=== PATIENT | female | born 1955 | race Caucasian/White ===

== ENCOUNTER 2022-10-08 10:16 | Day surgery (SDC) | payer MEDICARE, BC ==
[~2022-10-08 10:16] MED LIST: Propofol 200 MG/20 ML SDV ONE; Sodium Chloride 0.9% 10 ML Syringe FLUSH PRN
[2022-10-08] MEDS: Lactated Ringers 1,000 ML IV SCH (10:47)
[2022-10-08] MEDS ORDERED: Propofol 200 MG/20 ML SDV ONE ×2 (11:14→12:00)
== END 2022-10-08 13:16 | disposition home or self-care (01) ==
LOC: LL.SDS 10:16
PROVIDERS: ATTEND Surgery
DX: K52.9 Noninfective gastroenteritis and colitis, unspecified (principal); K29.50 Unspecified chronic gastritis without bleeding; K21.00 Gastro-esophageal reflux disease with esophagitis, without bleeding; G35 Multiple sclerosis; R70.0 Elevated erythrocyte sedimentation rate; Z79.899 Other long term (current) drug therapy; Z88.8 Allergy status to other drugs, medicaments and biological substances
CPT/HCPCS: 00813; J2704; J7120